=== PATIENT | female | born 1985 | race Caucasian/White ===

== ENCOUNTER 2018-02-23 23:00 | Emergency (ER) | payer OTHER ==
[2018-02-24] MEDS: CLINDAMYCIN 300 MG INJ IM (00:29)
== END 2018-02-24 01:45 | disposition home or self-care (01) ==
LOC: E/R 23:00
DX: R22.0 Localized swelling, mass and lump, head (principal)
CPT/HCPCS: 96372; 99284-25

== ENCOUNTER 2018-08-01 19:24 | Emergency (ER) | payer OTHER ==
[2018-08-01] MEDS: METHYLPREDNISOLONE 125 MG INJ IM (20:32)
[2018-08-01] MEDS: LEVALBUTEROL (NEB) 1.25 MG/0.5 ML AMP HHN (20:37)
[2018-08-01 20:48] LABS: ADD MAN DIFF? NO
[2018-08-01 20:51] LABS: WHITE BLOOD COUNT 5.1 10^3/ul (4.8-10.8)
[2018-08-01 20:51] LABS: BASOPHILS % 0.2 % (0.0-2.0); EOSINOPHILS # 0.3 10^3/ul (0.0-0.5); EOSINOPHILS % 4.9 % (0.0-7.0); HEMATOCRIT 39.5 % (37.0-47.0); HEMOGLOBIN 12.8 g/dl (12.0-16.0); LYMPHOCYTES # 1.1 10^3/ul (0.8-2.9); LYMPHOCYTES % 20.6 % (15.0-51.0); MEAN CORPUSCULAR HEMOGLOBIN 25.2 pg (29.0-33.0); MEAN CORPUSCULAR HGB CONC 32.4 g/dl (32.0-37.0); MEAN CORPUSCULAR VOLUME 77.9 fl (82.0-101.0); MEAN PLATELET VOLUME 10.5 fl (7.4-10.4); MONOCYTE # 0.4 10^3/ul (0.3-0.9); MONOCYTES % 7.7 % (0.0-11.0); NEUTROPHIL # 3.4 10^3/ul (1.6-7.5); PLATELET COUNT 222 10^3/UL (140-415); RED BLOOD COUNT 5.07 10^6/ul (4.20-5.40); RED CELL DISTRIBUTION WIDTH 13.6 % (11.5-14.5)
[2018-08-01 21:09] LABS: ALANINE AMINOTRANSFERASE 16 IU/L (13-69); ALBUMIN 3.8 g/dl (3.3-4.9); ALBUMIN/GLOBULIN RATIO 1.26; ALKALINE PHOSPHATASE 131 IU/L (42-121); ANION GAP 11 (5-13); ASPARTATE AMINO TRANSFERASE 23 IU/L (15-46); BLOOD UREA NITROGEN 12 mg/dl (7-20); CALCIUM 9.3 mg/dl (8.4-10.2); CARBON DIOXIDE 28 mmol/L (21-31); CHLORIDE 102 mmol/L (97-110); CREATININE 0.71 mg/dl (0.44-1.00); Estimated GFR > 60 mL/min (>60); GLUCOSE 103 mg/dl (70-220); POTASSIUM 3.7 mmol/L (3.5-5.1); SODIUM 141 mmol/L (135-144); TOTAL PROTEIN 6.8 g/dl (6.1-8.1)
[2018-08-01 21:11] LABS: INR 0.93; PARTIAL THROMBOPLASTIN TIME 27.5 Sec (23.0-35.0); PROTIME 12.6 Sec (11.9-14.9)
[2018-08-01 21:21] LABS: B-TYPE NATRIURETIC PEPTIDE 82 PG/ML (0-125); TROPONIN-I < 0.012 ng/ml (0.000-0.120)
[2018-08-01] MEDS: IBUPROFEN 800 MG TAB PO (22:19)
[2018-08-01] MEDS: ACETAMINOPHEN 500 MG TAB PO (22:19)
== END 2018-08-01 22:41 | disposition home or self-care (01) ==
LOC: FTE 19:24
DX: J45.901 Unspecified asthma with (acute) exacerbation (principal); I10 Essential (primary) hypertension
CPT/HCPCS: 71046; 80053; 81025; 83880; 84484; 85025; 85610; 85730; 93005; 94664; 96372; 99285-25